=== PATIENT | female | born 1945 | race Hispanic/Latino ===

== ENCOUNTER 2021-03-28 10:40 | Inpatient (IN) | payer MEDICARE ==
[2021-03-28 11:39] LABS: Basophils % (Auto) 0.5 % (0.0-1.8); Eosinophils % (Auto) 0.5 % (0.0-4.3); Hematocrit 27.1 % (30.3-42.9); Lymphocytes # (Auto) 1.2 K/mm3 (1.2-5.4); Lymphocytes % (Auto) 14.5 % (13.4-35.0); Mean Corpuscular HGB Conc 33 % (30-34); Mean Corpuscular Volume 92 fl (79-97); Monocytes # (Auto) 0.6 K/mm3 (0.0-0.8); Monocytes % (Auto) 7.8 % (0.0-7.3); Platelet Count 248 K/mm3 (140-440); Red Blood Count 2.95 M/mm3 (3.65-5.03); Red Cell Distribution Width 14.2 % (13.2-15.2)
--- NOTE | 2021-03-28 11:45 | Emergency Department Report ---
ED GI Bleed HPI - General Chief complaint: Dyspnea/Respdistress Stated complaint: RASHEED Time Seen by Provider: 03/28/21 10:45 Source: patient Mode of arrival: Wheelchair Limitations: No Limitations - History of Present Illness Initial comments: 75-year-old female with a past medical history hypertension, Atrial flutter status post cardiac ablation, hypothyroidism, and elevated cholesterol presents to the hospital complaining of rectal bleeding for the 2 days. March 26 patient received an outpatient colonoscopy at [facility]. Apparently she had a polypectomy and felt fine up into the evening. evening patient developed rectal bleeding with bowel movements and presented to [facility] ED she received ED work-up including CT angiogram chest that was subsequently discharged. Since discharge home patient has continued to have episodes of gross blood per rectum with urges to move her bowels. She denies any pain. She had an episode of dyspnea exertion with palpitations and lightheadedness which prompted her to come back to the ER for evaluation. - Related Data Previous Rx's Medication Instructions Recorded Last Taken Type cephALEXin [Keflex] 500 mg PO Q8HR #28 cap 09/13/19 Unknown Rx Allergies Allergy/AdvReac Type Severity Reaction Status Date / Time codeine Allergy Unknown Verified 09/13/19 11:05 Sulfa (Sulfonamide Allergy Unknown Verified 09/13/19 11:05 Antibiotics) ED Review of Systems ROS: Stated complaint: RASHEED Other details as noted in HPI Comment: All other systems reviewed and negative ED Past Medical Hx - Past Medical History Hx Hypertension: Yes Additional medical history: Atrial flutter status post cardiac ablation,hypothyroidism, increased cholesterol - Surgical History Additional Surgical History: Cardiac ablation, bladder tack, vocal cord nodule removal, hysterectomy - Social History Smoking Status: Never Smoker Substance Use Type: Alcohol - Medications Home Medications: Home Medications Medication Instructions Recorded Confirmed Last Taken Type cephALEXin [Keflex] 500 mg PO Q8HR #28 cap 09/13/19 Unknown Rx ED Physical Exam - General Limitations: No Limitations - Other Other exam information: General: No acute distress Head: Atraumatic Eyes: normal appearance ENT: Moist mucous membranes Neck: Normal appearance, no midline tenderness Chest: Clear to auscultation bilaterally CV: Regular rate and rhythm Abdomen: Soft, normal bowel sounds, nontender, nondistended, no rebound or guarding Rectal: Gross maroon-colored blood on examination without stool, guaiac positive Back: Normal inspection Extremity: Normal inspection, full range of motion Neuro: Alert O x 3, no facial asymmetry, speech clear, no gross motor sensory deficit Psych: Appropriate behavior Skin: No rash ED Course Vital Signs 03/28/21 03/28/21 03/28/21 10:50 11:00 11:06 Pulse Rate Respiratory 25 H Rate Blood Pressure 155/65 O2 Sat by Pulse 98 96 95 Oximetry 03/28/21 03/28/21 03/28/21 11:16 11:31 11:45 Pulse Rate 77 71 Respiratory 11 L 11 L Rate Blood Pressure 163/59 167/50 89/24 O2 Sat by Pulse 96 98 98 Oximetry 03/28/21 03/28/21 03/28/21 12:01 12:15 12:31 Pulse Rate 74 71 75 Respiratory 13 11 L 15 Rate Blood Pressure 120/38 127/51 128/54 O2 Sat by Pulse 99 98 98 Oximetry 03/28/21 03/28/21 03/28/21 12:45 13:01 13:15 Pulse Rate 76 71 81 Respiratory 10 L 14 15 Rate Blood Pressure 144/58 125/51 114/47 O2 Sat by Pulse 97 99 98 Oximetry - Consultations Consultation #1: 03/28/21 12:29 DR Wilburn Plan to prep this evening for colonoscopy tomorrow. Pt's hgb at [facility] on March 26 was 11.1 as per his medical record review ED Medical Decision Making - Lab Data Result diagrams: 03/28/21 10:58 03/28/21 10:58 Lab Results 03/28/21 03/28/21 03/28/21 Range/Units 10:58 10:58 10:58 WBC 8.3 (4.5-11.0) K/mm3 RBC 2.95 L (3.65-5.03) M/mm3 Hgb 9.0 L (10.1-14.3) gm/dl Hct 27.1 L (30.3-42.9) % MCV 92 (79-97) fl MCH 31 (28-32) pg MCHC 33 (30-34) % RDW 14.2 (13.2-15.2) % Plt Count 248 (140-440) K/mm3 Lymph % (Auto) 14.5 (13.4-35.0) % [place] % (Auto) 7.8 H (0.0-7.3) % Eos % (Auto) 0.5 (0.0-4.3) % Baso % (Auto) 0.5 (0.0-1.8) % Lymph # (Auto) 1.2 (1.2-5.4) K/mm3 [place] # (Auto) 0.6 (0.0-0.8) K/mm3 Eos # (Auto) 0.0 (0.0-0.4) K/mm3 Baso # (Auto) 0.0 (0.0-0.1) K/mm3 Seg Neutrophils % 76.7 H (40.0-70.0) % Seg Neutrophils # 6.3 (1.8-7.7) K/mm3 PT 13.6 (12.2-14.9) Sec. INR 0.94 (0.87-1.13) APTT 28.6 (24.2-36.6) Sec. Sodium 137 (137-145) mmol/L Potassium 3.4 L (3.6-5.0) mmol/L Chloride 101.4 (98-107) mmol/L Carbon Dioxide 17 L (22-30) mmol/L Anion Gap 22 mmol/L BUN 13 (7-17) mg/dL Creatinine 0.8 (0.6-1.2) mg/dL Estimated GFR > 60 ml/min BUN/Creatinine Ratio 16 % Glucose 96 (65-100) mg/dL Calcium 8.4 (8.4-10.2) mg/dL Total Bilirubin 0.20 (0.1-1.2) mg/dL AST 12 (5-40) units/L ALT 10 (7-56) units/L Alkaline Phosphatase 60 (35-129) units/L Total Protein 5.8 L (6.3-8.2) g/dL Albumin 3.7 L (3.9-5) g/dL Albumin/Globulin Ratio 1.8 % Blood Type Antibody Screen 03/28/21 Range/Units 10:58 WBC (4.5-11.0) K/mm3 RBC (3.65-5.03) M/mm3 Hgb (10.1-14.3) gm/dl Hct (30.3-42.9) % MCV (79-97) fl MCH (28-32) pg MCHC (30-34) % RDW (13.2-15.2) % Plt Count (140-440) K/mm3 Lymph % (Auto) (13.4-35.0) % [place] % (Auto) (0.0-7.3) % Eos % (Auto) (0.0-4.3) % Baso % (Auto) (0.0-1.8) % Lymph # (Auto) (1.2-5.4) K/mm3 [place] # (Auto) (0.0-0.8) K/mm3 Eos # (Auto) (0.0-0.4) K/mm3 Baso # (Auto) (0.0-0.1) K/mm3 Seg Neutrophils % (40.0-70.0) % Seg Neutrophils # (1.8-7.7) K/mm3 PT (12.2-14.9) Sec. INR (0.87-1.13) APTT (24.2-36.6) Sec. Sodium (137-145) mmol/L Potassium (3.6-5.0) mmol/L Chloride (98-107) mmol/L Carbon Dioxide (22-30) mmol/L Anion Gap mmol/L BUN (7-17) mg/dL Creatinine (0.6-1.2) mg/dL Estimated GFR ml/min BUN/Creatinine Ratio % Glucose (65-100) mg/dL Calcium (8.4-10.2) mg/dL Total Bilirubin (0.1-1.2) mg/dL AST (5-40) units/L ALT (7-56) units/L Alkaline Phosphatase (35-129) units/L Total Protein (6.3-8.2) g/dL Albumin (3.9-5) g/dL Albumin/Globulin Ratio % Blood Type O NEGATIVE Antibody Screen Negative - EKG Data -: EKG Interpreted by Ia EKG shows normal: sinus rhythm, intervals (Normal QTC 435), QRS complexes (Number QRS duration 96), ST-T waves (No ST elevation WA) Rate: normal (89) - Radiology Data Radiology results: report reviewed XR chest 1V ap INDICATION / CLINICAL INFORMATION: sob COMPARISON: None available. FINDINGS: SUPPORT DEVICES: None. HEART / MEDIASTINUM: No significant abnormality. LUNGS / PLEURA: Calcification seen in the right lung base. Costophrenic sulci are sharp. No pneumothorax. ADDITIONAL FINDINGS: No significant additional findings. IMPRESSION: 1. No acute findings identified - Medical Decision Making 75-year-old female presents to the hospital as rectal bleeding status post colonoscopy with symptoms of anemia. Hemoglobin 9.0 therefore blood transfusion not needed at this time however, this is a significant drop from 11.1 on March 26. Case discussed with GI who will recommend bowel prep for colonoscopy in a.m. Critical Care Time: No Critical care attestation.: If time is entered above; I have spent that time in minutes in the direct care of this critically ill patient, excluding procedure time. ED Disposition Clinical Impression: Rectal bleeding, Anemia Disposition: ADMITTED INPATIENT Is pt being admited?: Yes Condition: Stable Time of Disposition: 12:37
[2021-03-28 11:49] LABS: INR 0.94 (0.87-1.13)
[2021-03-28 11:50] LABS: Partial Thromboplastin Time 28.6 Sec. (24.2-36.6)
--- NOTE | 2021-03-28 11:50 | XRay Report ---
XR chest 1V ap INDICATION / CLINICAL INFORMATION: sob COMPARISON: None available. FINDINGS: SUPPORT DEVICES: None. HEART / MEDIASTINUM: No significant abnormality. LUNGS / PLEURA: Calcification seen in the right lung base. Costophrenic sulci are sharp. No pneumotho rax. ADDITIONAL FINDINGS: No significant additional findings. IMPRESSION: 1. No acute findings identified Signer Name: Kvng Rivas MD Signed: 03/28/2021 11:45 AM Workstation Name: [id number]
[2021-03-28 11:52] LABS: Alanine Aminotransferase 10 units/L (7-56); Albumin 3.7 g/dL (3.9-5); BUN/Creatinine Ratio 16; Blood Urea Nitrogen 13 mg/dL (7-17); Calcium 8.4 mg/dL (8.4-10.2); Hemolysis Index 1
--- NOTE | 2021-03-28 13:50 | Gastroenterology Consultation ---
History of Present Illness - Reason for Consult Consult date: 03/28/21 GI bleed Requesting physician: FAITH RODRIGUEZ - History of Present Illness The patient is a 75 yo wf who presents with hematochezia for 2 days. Pt had colonoscopy with [facility] in [place] 2 mornings ago. report not available, but pt reports having 2 polyps removed, her friend at beside believes there were ~1 cm in size and in the right colon. The same night, she developed multiple episodes of hematochezia with clots, went to [facility] (records reviewed) with hgb 11 and CTA without active bleeding. she was discharged home from ER but had persistent bleeding episodes and felt lightheaded and presented to this ER (requested to come here, also of note, she is the mayor of [place] she denies abdominal pain. on baby aspirin but has not taken in over 1 week. last episode of bleeding was a couple hours ago. hgb 9 on this admission. HD stable. ? colonic avm as well per clinic note seen in epic. Past History Past Medical History: other (aflutter with prior ablation) Past Surgical History: hysterectomy Social history: no significant social history Family history: no significant family history Medications and Allergies Allergies Allergy/AdvReac Type Severity Reaction Status Date / Time codeine Allergy Unknown Verified 09/13/19 11:05 Sulfa (Sulfonamide Allergy Unknown Verified 09/13/19 11:05 Antibiotics) Home Medications Medication Instructions Recorded Confirmed Last Taken Type cephALEXin [Keflex] 500 mg PO Q8HR #28 cap 09/13/19 Unknown Rx Active Meds: Active Medications Acetaminophen (Acetaminophen 325 Mg Tab) 650 mg PO Q4H PRN PRN Reason: Pain MILD(1-3)/Fever >100.5/FOLEY Ondansetron HCl (Ondansetron 4 Mg/2 Ml Inj) 4 mg IV Q8H PRN PRN Reason: Nausea And Vomiting Oxycodone/Acetaminophen (Oxycodone /Acetaminophen 5-325mg Tab) 1 tab PO Q6H PRN PRN Reason: Pain, Moderate (4-6) Sodium Chloride (Sodium Chloride 0.9% 10 Ml Flush Syringe) 10 ml IV BID FUENTES Sodium Chloride (Sodium Chloride 0.9% 10 Ml Flush Syringe) 10 ml IV PRN PRN PRN Reason: LINE FLUSH Reviewed/updated patient's home and current medications. Review of Systems - Review of Systems All systems: negative (dyspnea (improved), rest per HPI) Exam - Constitutional Vital Signs: Temp Pulse Resp BP Pulse Ox 81 15 114/47 98 03/28/21 13:15 03/28/21 13:15 03/28/21 13:15 03/28/21 13:15 General appearance: no acute distress - EENT Eyes: PERRL, EOM intact - Respiratory Respiratory effort: normal Respiratory: bilateral: CTA - Cardiovascular Rhythm: regular Heart Sounds: Present: S1 & S2 - Gastrointestinal General gastrointestinal: Present: soft, non-tender, non-distended - Neurologic Neurological: alert and oriented x3 - Psychiatric Psychiatric: appropriate mood/affect - Labs CBC & Chem 7: 03/28/21 10:58 03/28/21 10:58 Lab Results: Laboratory Results - last 24 hr 03/28/21 03/28/21 03/28/21 10:58 10:58 10:58 WBC 8.3 RBC 2.95 L Hgb 9.0 L Hct 27.1 L MCV 92 MCH 31 MCHC 33 RDW 14.2 Plt Count 248 Lymph % (Auto) 14.5 [place] % (Auto) 7.8 H Eos % (Auto) 0.5 Baso % (Auto) 0.5 Lymph # (Auto) 1.2 [place] # (Auto) 0.6 Eos # (Auto) 0.0 Baso # (Auto) 0.0 Seg Neutrophils % 76.7 H Seg Neutrophils # 6.3 PT 13.6 INR 0.94 APTT 28.6 Sodium 137 Potassium 3.4 L Chloride 101.4 Carbon Dioxide 17 L Anion Gap 22 BUN 13 Creatinine 0.8 Estimated GFR > 60 BUN/Creatinine Ratio 16 Glucose 96 Calcium 8.4 Total Bilirubin 0.20 AST 12 ALT 10 Alkaline Phosphatase 60 Total Protein 5.8 L Albumin 3.7 L Albumin/Globulin Ratio 1.8 Blood Type Antibody Screen 03/28/21 10:58 WBC RBC Hgb Hct MCV MCH MCHC RDW Plt Count Lymph % (Auto) [place] % (Auto) Eos % (Auto) Baso % (Auto) Lymph # (Auto) [place] # (Auto) Eos # (Auto) Baso # (Auto) Seg Neutrophils % Seg Neutrophils # PT INR APTT Sodium Potassium Chloride Carbon Dioxide Anion Gap BUN Creatinine Estimated GFR BUN/Creatinine Ratio Glucose Calcium Total Bilirubin AST ALT Alkaline Phosphatase Total Protein Albumin Albumin/Globulin Ratio Blood Type O NEGATIVE Antibody Screen Negative Assessment and Plan 1. Hematochezia with acute blood loss anemia - LGI bleed after recent colonoscopy with polypectomy suggesting post-polypectomy bleed. also h/o colonic avm per chart review but suspect post-polypectomy bleed given timing. HD stable, drop in Hgb compared to yesterday at [facility]. will plan for golytely p rep this evening and colonoscopy tomorrow morning. okay for clears today from gi stand point. if signs of brisk bleeding, obtain CTA of abdomen, but currently does not appear to be the case.
[2021-03-28] MEDS ORDERED: oxyCODONE /ACETAMINOPHEN 5-325MG TAB PO PRN ×2 (14:00→14:29)
[2021-03-28] MEDS ORDERED: ACETAMINOPHEN 325 MG TAB PO PRN ×2 (14:00→14:29)
[2021-03-28] MEDS ORDERED: ONDANSETRON 4 MG/2 ML INJ IV PRN ×2 (14:00→14:29)
[2021-03-28] MEDS ORDERED: HYDROmorphone 1 MG/1 ML INJ IV PRN (14:29)
[2021-03-28] MEDS ORDERED: ALBUTEROL 2.5 MG/3 ML NEBU IH PRN (14:29)
--- NOTE | 2021-03-28 14:31 | History and Physical Report ---
History of Present Illness Chief complaint: I have been bleeding a lot History of present illness: 75 YO Female with HTN, Obesity, Hypothyroidism, HLD, Atrial Flutter S/P Ablation therapy not taking anticoagulation presents ED for evaluation. Patient reports "I had a lot of blood on my bottom". Patient states that she has experienced multiple episodes of rectal bleeding over the past 2 days with persistent symptoms over the same timeframe. Patient transported to [facility] via private vehicle for further care and evaluation of the aforementioned symptoms. The patient was seen and evaluated in the emergency department. All lab and imaging studies reviewed. Patient found to have bright red blood per rectum also found to be Hemoccult positive in the emergency department. Patient found to have clinical findings consistent with GI bleed. Patient admitted to telemetry and initiated on GI bleed protocol. Patient denies fever, chills, chest pain, palpitation, productive cough, skin rash or recent contact, ingestion of food/water from new or different sources, or known exposure to COVID-19. No prior admission for review. No medication listed at time of admission for reconciliation. Advanced care planning conducted in ED. Past History Past Medical History: atrial fib, hypertension, hyperlipidemia, other (aflutter with prior ablation) Past Surgical History: hysterectomy, Other (Cardiac ablation, bladder tack, vocal cord nodule removal) Social history: , lives with family. denies: smoking, alcohol abuse Family history: hypertension Medications and Allergies Allergies Allergy/AdvReac Type Severity Reaction Status Date / Time codeine Allergy Unknown Verified 09/13/19 11:05 Sulfa (Sulfonamide Allergy Unknown Verified 09/13/19 11:05 Antibiotics) Home Medications Medication Instructions Recorded Confirmed Last Taken Type cephALEXin [Keflex] 500 mg PO Q8HR #28 cap 09/13/19 Unknown Rx Active Meds: Active Medications Acetaminophen (Acetaminophen 325 Mg Tab) 650 mg PO Q4H PRN PRN Reason: Pain MILD(1-3)/Fever >100.5/FOLEY Acetaminophen (Acetaminophen 325 Mg Tab) 650 mg PO Q4H PRN PRN Reason: Pain MILD(1-3)/Fever >100.5/FOLEY Albuterol (Albuterol 2.5 Mg/3 Ml Nebu) 2.5 mg IH Q4HRT PRN PRN Reason: Shortness Of Breath Hydromorphone HCl (Hydromorphone 1 Mg/1 Ml Inj) 0.5 mg IV Q8H PRN PRN Reason: Pain , Severe (7-10) Ondansetron HCl (Ondansetron 4 Mg/2 Ml Inj) 4 mg IV Q8H PRN PRN Reason: Nausea And Vomiting Ondansetron HCl (Ondansetron 4 Mg/2 Ml Inj) 4 mg IV Q8H PRN PRN Reason: Nausea And Vomiting Oxycodone/Acetaminophen (Oxycodone /Acetaminophen 5-325mg Tab) 1 tab PO Q6H PRN PRN Reason: Pain, Moderate (4-6) Oxycodone/Acetaminophen (Oxycodone /Acetaminophen 5-325mg Tab) 1 tab PO Q6H PRN PRN Reason: Pain, Moderate (4-6) Polyethylene Glycol/Electrolytes (Polyethylene Glycol/Elect Soln 4000 Ml) 4,000 ml PO ONCE ONE Stop: 03/28/21 15:01 Sodium Chloride (Sodium Chloride 0.9% 10 Ml Flush Syringe) 10 ml IV BID FUENTES Sodium Chloride (Sodium Chloride 0.9% 10 Ml Flush Syringe) 10 ml IV PRN PRN PRN Reason: LINE FLUSH Sodium Chloride (Sodium Chloride 0.9% 10 Ml Flush Syringe) 10 ml IV BID FUENTES Sodium Chloride (Sodium Chloride 0.9% 10 Ml Flush Syringe) 10 ml IV PRN PRN PRN Reason: LINE FLUSH Review of Systems Constitutional: no weight loss, no weight gain, no fever, no chills Ears, nose, mouth and throat: no ear pain, no tinnitis, no decreased hearing, no nasal congestion, no nasal discharge Breasts: no change in shape, no mass Cardiovascular: no chest pain, no orthopnea, no palpitations, no edema, no synco pe Respiratory: no cough, no excessive sputum, no hemoptysis, no shortness of breath Gastrointestinal: BRBPR, no abdominal pain, no nausea, no vomiting, no hematemesis Genitourinary Female: no pelvic pain, no flank pain, no dysuria, no urinary frequency, no urgency Rectal: bleeding, no pain, no incontinence Musculoskeletal: no neck stiffness, no shooting arm pain, no arm n umbness/tingling Integumentary: no rash, no pruritis, no wounds, no jaundice, no blisters Neurological: no head injury, no paralysis, no weakness, no parathesias, no seizures, no syncope, no tremors Psychiatric: no anxiety, no hypersomnia, no change in appetite, no suicidal ideation Endocrine: no cold intolerance, no polyphagia, no excessive thirst, no nocturia, no excessive sweating Hematologic/Lymphatic: no easy bruising, no easy bleeding, no lymphadenopathy, no lymphedema Allergic/Immunologic: no urticaria, no wheezing, no persistent infections Exam - Constitutional Vitals: Temp Pulse Resp BP Pulse Ox 81 15 114/47 98 03/28/21 13:15 03/28/21 13:15 03/28/21 13:15 03/28/21 13:15 General appearance: Present: mild distress, obese - EENT Eyes: Present: PERRL ENT: hearing intact, clear oral mucosa - Neck Neck: Present: supple, normal ROM - Respiratory Respiratory effort: normal Respiratory: bilateral: CTA - Cardiovascular Heart Sounds: Present: S1 & S2. Absent: rub, click - Extremities Extremities: pulses symmetrical, No edema Peripheral Pulses: within normal limits - Abdominal General gastrointestinal: Present: soft, non-tender, non-distended, normal bowel sounds Female genitourinary: Present: normal - Integumentary Integumentary: Present: clear, warm, dry - Musculoskeletal Musculoskeletal: gait normal, strength equal bilaterally - Psychiatric Psychiatric: appropriate mood/affect, intact judgment & insight - Neurologic Neurologic: CNII-XII intact, moves all extremities Results - Labs CBC & Chem 7: 03/28/21 10:58 03/28/21 10:58 Labs: Abnormal lab results 03/28/21 03/28/21 Range/Units 10:58 10:58 RBC 2.95 L (3.65-5.03) M/mm3 Hgb 9.0 L (10.1-14.3) gm/dl Hct 27.1 L (30.3-42.9) % [place] % (Auto) 7.8 H (0.0-7.3) % Seg Neutrophils % 76.7 H (40.0-70.0) % Potassium 3.4 L (3.6-5.0) mmol/L Carbon Dioxide 17 L (22-30) mmol/L Total Protein 5.8 L (6.3-8.2) g/dL Albumin 3.7 L (3.9-5) g/dL Assessment and Plan - Patient Problems (1) Gastrointestinal hemorrhage Current Visit: Yes Status: Acute Plan to address problem: GI bleed protocol: Admit to telemetry, IV PPI therapy, supportive care, bowel rest, serial abdominal exam, GI team consulted in ED. Patient pending endoscopy in a.m. (2) Blood loss anemia Current Visit: Yes Status: Acute Plan to address problem: Supportive care, serial CBC. Will consider blood transfusion if patient drops hemoglobin greater than 2 g within the next 24 hours. (3) Obesity Current Visit: Yes Status: Acute Qualifiers: Body mass index: BMI 39.0-39.9 Plan to address problem: Balanced diet, increase physical activity discharge, outpatient pulmonary follow-up for sleep study. (4) Hypertension Current Visit: Yes Status: Acute Qualifiers: Hypertension type: primary hypertension Qualified Code(s): I10 - Essential (primary) hypertension Plan to address problem: Monitor blood pressure every shift, continue medical management (5) Hypothyroidism Current Visit: Yes Status: Acute Qualifiers: Hypothyroidism type: unspecified Qualified Code(s): E03.9 - Hypothyroidism, unspecified Plan to address problem: Supportive care, thyroid panel, supportive care. (6) Atrial flutter Current Visit: Yes Status: Acute Plan to address problem: Patient status post ablation. Patient continues to have normal sinus rhythm at this time. (7) DVT prophylaxis Current Visit: Yes Status: Acute Plan to address problem: SCD to bilateral lower extremities while in bed. Hold anticoagulation for now due to active GI bleed. (8) Advance care planning Current Visit: Yes Status: Acute Plan to address problem: Disease education done, care plan discussed, diagnoses discussed, prognosis discussed, patient is full code. Patient acknowledges understanding and agreement with care plan, +30 minutes.
[2021-03-28] MEDS ORDERED: POLYETHYLENE GLYCOL/ELECT SOLN 4000 ML PO ONE (15:00)
[2021-03-28 19:52] LABS: Free T4 (Free Thyroxine) 1.4 ng/dL (0.76-1.46)
[2021-03-28] MEDS: PANTOPRAZOLE 40 MG INJ IV SCH (21:55)
[2021-03-28] MEDS ORDERED: D5W/0.45% NACL 1,000 ML IV SCH (22:00)
[2021-03-29 05:38] LABS: Basophils % (Auto) 0.3 % (0.0-1.8); Eosinophils # (Auto) 0.1 K/mm3 (0.0-0.4); Eosinophils % (Auto) 0.8 % (0.0-4.3); Hematocrit 24.4 % (30.3-42.9); Hemoglobin 7.9 gm/dl (10.1-14.3); Lymphocytes # (Auto) 1.3 K/mm3 (1.2-5.4); Lymphocytes % (Auto) 19.5 % (13.4-35.0); Mean Corpuscular HGB Conc 33 % (30-34); Mean Corpuscular Volume 94 fl (79-97); Monocytes # (Auto) 0.6 K/mm3 (0.0-0.8); Monocytes % (Auto) 8.7 % (0.0-7.3); Platelet Count 211 K/mm3 (140-440); Red Blood Count 2.61 M/mm3 (3.65-5.03); Red Cell Distribution Width 14.4 % (13.2-15.2)
[2021-03-29 05:55] LABS: Blood Urea Nitrogen 9 mg/dL (7-17); Calcium 7.9 mg/dL (8.4-10.2); Hemolysis Index 12
[2021-03-29 06:02] LABS: BUN/Creatinine Ratio 15
[2021-03-29] MEDS ORDERED: WATER FOR IRRIG STERILE 1,000 ML BOTTLE ONE (08:09)
[2021-03-29] MEDS ORDERED: EPINEPHrine 1 MG/10 ML SYRINGE ONE (08:09)
[2021-03-29] MEDS ORDERED: WATER FOR IRRIG STERILE 250 ML BOTTLE IR ONE (08:09)
[2021-03-29] MEDS ORDERED: SODIUM CHLORIDE 0.9% 1000 ML 1,000 ML ONE (08:09)
--- NOTE | 2021-03-29 08:28 | Anesthesia Consultation ---
Anesthesia Consult and Med Hx Date of service: 03/29/21 - Airway Anesthetic Teeth Evaluation: Good, Caps ROM Head & Neck: Adequate Mental/Hyoid Distance: Adequate Mallampati Class: Class III Intubation Access Assessment: Possibly Difficult - Pre-Operative Health Status ASA Pre-Surgery Classification: ASA3 Proposed Anesthetic Plan: MAC - Cardiovascular System Hx Hypertension: Yes Hx Coronary Artery Disease: No (high cholesterol) Hx Cardia Arrhythmia: Yes (a-fib/a-flutter, s/p ablation) - Central Nervous System Hx Psychiatric Problems: No - Gastrointestinal Hx Ulcer: No (rectal bleeding, following colonoscopy with polypectomy) - Endocrine Hx Hypothyroidism: Yes - Other Systems Hx Obesity: Yes (BMI 39.9)
--- NOTE | 2021-03-29 08:45 | Anesthesia Day of Surgery ---
Anesthesia Day of Surgery - Day of Surgery Patient Examined: Yes Patient H&P Reviewed: Yes Patient is NPO: Yes
[2021-03-29] MEDS ORDERED: propofoL 200 MG/20 ML VIAL IV ONE (08:47)
--- NOTE | 2021-03-29 09:09 | Operative Report ---
Operative Report Operative Report: Colonoscopy Procedure Note Date of procedure: 03/29/2021 Endoscopist: Kevin Wilburn Pre-op diagnosis/indication: GI bleed/hematochezia Post-op diagnosis: Post-polypectomy ulcer, right sided avm's, diverticulosis Medications: MAC Estimated blood loss: None Description of procedure: After consent was obtained, the patient was placed in the left lateral decubitus position. The olympus colonoscope was inserted into the rectum and advanced to the cecum without difficulty. The patient tolerated the procedure well. The views of the mucosa were good. The quality of prep was good. The patient's vital signs were monitored continuously throughout the procedure. Findings: There was an ulcer in the cecum with a heme spot which is likely the site of the recent polypectomy. There was no high risk bleeding stigmata seen at this time. There were ~3 avm's in the proximal colon. Two were medium sized and a larger one was in the cecum adjacent the the recent polypectomy site. There was no bleeding seen from these locations. There were a few diverticula in the left side of the colon. No blood was seen in the entire procedure. Impression: 1. Post polypectomy ulcer with heme spot - no high risk bleeding stigmata. Suspect this is the source of the recent bleeding. 2. Right side/cecal avm's without bleeding 3. Left sided diverticulosis Recommendations: -okay to resume diet -can resume aspirin in 7 days if no further bleeding signs -recommend monitoring patient today, and if no further bleeding and stable labs, can be discharged tomorrow from gi stand point.
--- NOTE | 2021-03-29 09:41 | Post Anesthesia Evaluation ---
- Post Anesthesia Evaluation Patient Participated: Yes Airway Patent: Yes Stable Respiratory Function: Yes Nausea/Vomiting: No Temp > 96.8F: Yes Pain Manageable: Yes Adequeate Hydration: Yes Anesthesia Complications: No
[2021-03-29] MEDS: PANTOPRAZOLE 40 MG INJ IV SCH ×2 (10:36→21:15)
[2021-03-29] MEDS ORDERED: NON-FORMULARY EACH (Levothyroxine Tablet) PO SCH (11:30)
[2021-03-29] MEDS ORDERED: FUROSEMIDE 20 MG/2 ML INJ IV ONE (12:00)
[2021-03-29] MEDS ORDERED: ACETAMINOPHEN 325 MG TAB PO ONE (12:00)
[2021-03-29] MEDS ORDERED: SODIUM CHLORIDE 0.9% 500 ML 500 ML IV ONE (12:00)
[2021-03-29] MEDS ORDERED: diphenhydrAMINE 50 MG/ML VIAL IV ONE (12:00)
[2021-03-29] MEDS ORDERED: LEVOTHYROXINE 88 MCG TAB PO SCH (12:01)
--- NOTE | 2021-03-29 14:33 | Electrocardiograph Report ---
[facility] Test Date: 2021-03-28 Test Time: 11:04:24 Pat Name: JULIO GLEZ Department: Room: A482 Gender: F C D Still Operator: [id number] : 1945 Requested By: FAITH RODRIGUEZ Order Number: [id number] Reading MD: Wang Mejía Measurements Intervals [place] Rate: 89 P: 78 [place]: 178 QRS: 73 QRSD: 96 T: 25 QT: 358 QTc: 435 Interpretive Statements Sinus rhythm Low voltage, precordial leads No previous ECG available for comparison Electronically Signed On 03-29-2021 14:33:06 EST by Wang Mejía
--- NOTE | 2021-03-29 16:16 | Progress Note ---
Assessment and Plan - Patient Problems (1) Gastrointestinal hemorrhage Current Visit: Yes Status: Acute Plan to address problem: GI bleed protocol: Admit to telemetry, IV PPI therapy, supportive care, bowel rest, serial abdominal exam, GI team consulted in ED. packed red blood cell transfusion today. Continue to monitor for recurrent bleeding. Discharge planning in a.m. if hemoglobin stable and no recurrent bleeding. (2) Blood loss anemia Current Visit: Yes Status: Acute Plan to address problem: Supportive care, serial CBC. Packed red blood cell transfusion, Tylenol and Benadryl prior to transfusion. Lasix 10 mg IV after transfusion of third unit of packed red blood cells. (3) Obesity Current Visit: Yes Status: Acute Qualifiers: Body mass index: BMI 39.0-39.9 Plan to address problem: Balanced diet, increase physical activity discharge, outpatient pulmonary follow-up for sleep study. (4) Hypertension Current Visit: Yes Status: Acute Qualifiers: Hypertension type: primary hypertension Qualified Code(s): I10 - Essential (primary) hypertension Plan to address problem: Monitor blood pressure every shift, continue medical management (5) Hypothyroidism Current Visit: Yes Status: Acute Qualifiers: Hypothyroidism type: unspecified Qualified Code(s): E03.9 - Hypothyroidism, unspecified Plan to address problem: Continue Synthroid therapy, supportive care (6) Atrial flutter Current Visit: Yes Status: Acute Plan to address problem: Patient status post ablation. Patient continues to have normal sinus rhythm at this time. (7) DVT prophylaxis Current Visit: Yes Status: Acute Plan to address problem: SCD to bilateral lower extremities while in bed. Hold anticoagulation for now due to active GI bleed. (8) Advance care planning Current Visit: Yes Status: Acute Plan to address problem: Disease education done, care plan discussed, diagnoses discussed, prognosis discussed, patient is full code. Patient acknowledges understanding and agreement with care plan, +30 minutes. History Interval history: 75 YO Female HD #2 with GI Bleed complicated by blood loss anemia with continued drop in hgb overnight by greater than 1 gram. Patient underwent colonoscopy today and was found to have bleeding from polyp excision site. 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 Patient reports continued weakness. No reported nursing events. Patient denies pain. Hospitalist Physical - Constitutional Vitals: Temp Pulse Resp BP Pulse Ox 98.1 F 73 18 140/49 98 03/29/21 15:35 03/29/21 15:35 03/29/21 15:35 03/29/21 15:13 03/29/21 16:00 General appearance: Present: mild distress, obese - EENT Eyes: Present: PERRL ENT: other (Conjunctival pallor) - Respiratory Respiratory effort: normal Respiratory: bilateral: CTA - Cardiovascular Rhythm: regular Heart Sounds: Present: S1 & S2 - Extremities Extremities: no ischemia Peripheral Pulses: within normal limits - Abdominal General gastrointestinal: soft, non-tender, non-distended - Psychiatric Psychiatric: appropriate mood/affect, intact judgment & insight, memory intact - Neurologic Neurologic: CNII-XII intact, moves all extremities, gait normal Results - Labs CBC & Chem 7: 03/29/21 05:23 03/29/21 05:23 Labs: Laboratory Last Values WBC 6.6 K/mm3 (4.5-11.0) 03/29/21 05:23 RBC 2.61 M/mm3 (3.65-5.03) L 03/29/21 05:23 Hgb 7.9 gm/dl (10.1-14.3) L 03/29/21 05:23 Hct 24.4 % (30.3-42.9) L 03/29/21 05:23 MCV 94 fl (79-97) 03/29/21 05:23 MCH 31 pg (28-32) 03/29/21 05:23 MCHC 33 % (30-34) 03/29/21 05:23 RDW 14.4 % (13.2-15.2) 03/29/21 05:23 Plt Count 211 K/mm3 (140-440) 03/29/21 05:23 Lymph % (Auto) 19.5 % (13.4-35.0) 03/29/21 05:23 [place] % (Auto) 8.7 % (0.0-7.3) H 03/29/21 05:23 Eos % (Auto) 0.8 % (0.0-4.3) 03/29/21 05:23 Baso % (Auto) 0.3 % (0.0-1.8) 03/29/21 05:23 Lymph # (Auto) 1.3 K/mm3 (1.2-5.4) 03/29/21 05:23 [place] # (Auto) 0.6 K/mm3 (0.0-0.8) 03/29/21 05:23 Eos # (Auto) 0.1 K/mm3 (0.0-0.4) 03/29/21 05:23 Baso # (Auto) 0.0 K/mm3 (0.0-0.1) 03/29/21 05:23 Seg Neutrophils % 70.7 % (40.0-70.0) H 03/29/21 05:23 Seg Neutrophils # 4.7 K/mm3 (1.8-7.7) 03/29/21 05:23 PT 13.6 Sec. (12.2-14.9) 03/28/21 10:58 INR 0.94 (0.87-1.13) 03/28/21 10:58 APTT 28.6 Sec. (24.2-36.6) 03/28/21 10:58 Sodium 138 mmol/L (137-145) 03/29/21 05:23 Potassium 4.1 mmol/L (3.6-5.0) D 03/29/21 05:23 Chloride 103.9 mmol/L (98-107) 03/29/21 05:23 Carbon Dioxide 22 mmol/L (22-30) 03/29/21 05:23 Anion Gap 16 mmol/L 03/29/21 05:23 BUN 9 mg/dL (7-17) 03/29/21 05:23 Creatinine 0.6 mg/dL (0.6-1.2) 03/29/21 05:23 Estimated GFR > 60 ml/min 03/29/21 05:23 BUN/Creatinine Ratio 15 % 03/29/21 05:23 Glucose 120 mg/dL (65-100) H 03/29/21 05:23 Calcium 7.9 mg/dL (8.4-10.2) L 03/29/21 05:23 Total Bilirubin 0.20 mg/dL (0.1-1.2) 03/28/21 10:58 AST 12 units/L (5-40) 03/28/21 10:58 ALT 10 units/L (7-56) 03/28/21 10:58 Alkaline Phosphatase 60 units/L (35-129) 03/28/21 10:58 Total Protein 5.8 g/dL (6.3-8.2) L 03/28/21 10:58 Albumin 3.7 g/dL (3.9-5) L 03/28/21 10:58 Albumin/Globulin Ratio 1.8 % 03/28/21 10:58 TSH 1.140 mlU/mL (0.270-4.200) 03/28/21 18:40 Free T4 1.40 ng/dL (0.76-1.46) 03/28/21 18:40 Blood Type O NEGATIVE 03/28/21 10:58 Antibody Screen Negative 03/28/21 10:58 Crossmatch See Detail 03/28/21 10:58 Microbiology: Microbiology 03/28/21 11:17 Stool Stool Occult Blood (MARIXA) - Final Rausch/IV: Voiding Method Toilet Active Medications - Current Medications Current Medications: Generic Name Dose Route Start Last Admin Trade Name Freq PRN Reason Stop Dose Admin Acetaminophen 650 mg 03/28/21 14:29 Acetaminophen 325 Mg Tab PO Q4H PRN Pain MILD(1-3)/Fever >100.5/FOLEY Albuterol 2.5 mg 03/28/21 14:29 Albuterol 2.5 Mg/3 Ml Nebu IH Q4HRT PRN Shortness Of Breath Diltiazem HCl 20 mg 03/29/21 22:00 Diltiazem 60 Mg Tab PO BID FUENTES Hydromorphone HCl 0.5 mg 03/28/21 14:29 Hydromorphone 1 Mg/1 Ml Inj IV Q8H PRN Pain , Severe (7-10) Dextrose/Sodium Chloride 1,000 mls @ 75 mls/hr 03/28/21 22:00 03/28/21 22:56 D5/0.45ns IV 75 mls/hr DIRECT FUENTES Administration Levothyroxine Sodium 88 mcg 03/29/21 12:01 03/29/21 14:06 Levothyroxine 88 Mcg Tab PO 88 mcg SuMoWeThSa FUENTES Administration Levothyroxine Sodium 75 mcg 03/31/21 06:00 Levothyroxine 75 Mcg Tab PO TuFr FUENTES Ondansetron HCl 4 mg 03/28/21 14:29 Ondansetron 4 Mg/2 Ml Inj IV Q8H PRN Nausea And Vomiting Oxycodone/Acetaminophen 1 tab 03/28/21 14:29 Oxycodone /Acetaminophen 5-325mg Tab PO Q6H PRN Pain, Moderate (4-6) Pantoprazole Sodium 40 mg 03/28/21 22:00 03/29/21 10:36 Pantoprazole 40 Mg Inj IV 40 mg BID FUENTES Administration Sodium Chloride 10 ml 03/28/21 22:00 03/29/21 10:36 Sodium Chloride 0.9% 10 Ml Flush Syringe IV 10 ml BID FUENTES Administration Sodium Chloride 10 ml 03/28/21 14:29 Sodium Chloride 0.9% 10 Ml Flush Syringe IV PRN PRN LINE FLUSH
[2021-03-29] MEDS: dilTIAZem 60 MG TAB PO SCH (21:15)
[2021-03-29] MEDS ORDERED: DILTIAZEM PO SCH (22:00)
[2021-03-29 22:08] LABS: Hematocrit 30.6 % (30.3-42.9); Hemoglobin 10.1 gm/dl (10.1-14.3)
[2021-03-30 06:35] LABS: Hematocrit 30.6 % (30.3-42.9); Hemoglobin 10.1 gm/dl (10.1-14.3)
[2021-03-30] MEDS ORDERED: PANTOPRAZOLE 40 MG TAB PO SCH (07:30)
[2021-03-30 08:27] VITALS: BP 138/51
--- NOTE | 2021-03-30 08:40 | Discharge Summary ---
Providers - Providers Date of Admission: 03/28/21 12:53 Attending physician: NEAL SHELTON MD 03/28/21 12:32 Consult to Physician [CONS] Urgent Comment: Consulting Provider: JHONATAN CANO Physician Instructions: Reason For Exam: rectal bleeding, hgb drop 03/30/21 07:58 Physical Therapy Evaluation and Treat [CONS] Urgent Comment: Reason For Exam: weakness Primary care physician: [employer] Hospitalization Condition: Stable Core Measure Documentation - Palliative Care Palliative Care/ Comfort Measures: Not Applicable Exam - Constitutional Vitals: Temp Pulse Resp BP Pulse Ox 98.5 F 68 18 138/51 96 03/30/21 07:54 03/30/21 07:54 03/30/21 07:54 03/30/21 07:54 03/30/21 07:54 Plan Care Plan Goals: Please follow-up with your primary care doctor within 1 week after discharge. You can restart taking aspirin 1 week after today as long as there is no more bleeding. Follow up with: PRIMARY MD BRIAN [Primary Care Provider] - 7 Days Prescriptions: Pantoprazole [Protonix TAB] 40 mg PO BIDAC 30 Days #60 tablet
--- NOTE | 2021-03-30 09:03 | Gastroenterology Progress Note ---
Assessment and Plan 1. Hematochezia/GI bleed - resolved, suspect post-polypectomy bleed. H/H improved. okay to be discharged from gi stand point. can resume aspirin in 1 week and follow-up with primary GI after discharge. will sign off, please call as needed or with questions. Subjective Date of service: 03/30/21 Principal diagnosis: hematochezia Interval history: No events overnight/no further bleeding episodes since colonoscopy. feels well and wishes to go home. Objective - Constitutional Vitals: Temp Pulse Resp BP Pulse Ox 98.5 F 68 18 138/51 97 03/30/21 07:54 03/30/21 07:54 03/30/21 07:54 03/30/21 07:54 03/30/21 08:51 General appearance: no acute distress - Respiratory Respiratory effort: normal Respiratory: bilateral: CTA - Cardiovascular Rhythm: regular Heart Sounds: Present: S1 & S2 - Gastrointestinal General gastrointestinal: Present: soft, non-tender - Labs CBC & Chem 7: 03/30/21 06:05 03/29/21 05:23 Labs: Laboratory Results - last 24 hr 03/28/21 03/29/21 03/30/21 10:58 21:47 06:05 Hgb 10.1 10.1 Hct 30.6 D 30.6 Blood Type O NEGATIVE Antibody Screen Negative Crossmatch See Detail
[2021-03-30] MEDS ORDERED: NON-FORMULARY EACH (Levothyroxine Tablet) PO SCH (10:00)
[2021-03-30] MEDS: dilTIAZem 60 MG TAB PO SCH (10:29)
[2021-03-31] MEDS ORDERED: LEVOTHYROXINE 75 MCG TAB PO SCH (06:00)
== END 2021-03-30 11:18 | disposition home or self-care (01) | DRG 378 ==
LOC: ED 10:40 → EEVIPCON 12:53 → 4A 12:53
PROVIDERS: ADMIT Internal Medicine; ATTEND Student in an Organized Health Care Education/Training Program
PROC: 0DJD8ZZ Inspection of Lower Intestinal Tract, Via Natural or Artificial Opening Endoscopic (ICD-10-PCS; principal; 2021-03-29)
PROC: 30233N1 Transfusion of Nonautologous Red Blood Cells into Peripheral Vein, Percutaneous Approach (ICD-10-PCS; 2021-03-29)
DX: K57.91 Diverticulosis of intestine, part unspecified, without perforation or abscess with bleeding (principal); D62 Acute posthemorrhagic anemia; I48.92 Unspecified atrial flutter; K27.4 Chronic or unspecified peptic ulcer, site unspecified, with hemorrhage; K62.5 Hemorrhage of anus and rectum; E78.5 Hyperlipidemia, unspecified; E03.9 Hypothyroidism, unspecified; K63.5 Polyp of colon; I10 Essential (primary) hypertension; Z90.710 Acquired absence of both cervix and uterus; Z82.49 Family history of ischemic heart disease and other diseases of the circulatory system; Z88.5 Allergy status to narcotic agent; Z88.2 Allergy status to sulfonamides; Z88.1 Allergy status to other antibiotic agents
CPT/HCPCS: 36415; 71045; 80048; 80053; 82271; 84439; 84443; 85014; 85018; 85025; 85610; 85730; 86850; 86900; 86901; 86920; 93005; 93010; 94760; G0378; J7070; J7120; Q0162; C9113; J0171; J1200; J1940; J2704; J7030; J7040; P9016

== ENCOUNTER 2021-05-28 09:07 | Outpatient (CLI) | payer MEDICARE ==
--- NOTE | 2021-05-28 13:14 | Ultrasound Report ---
LEFT DIGITAL DIAGNOSTIC MAMMOGRAM -- 05/28/2021 LEFT LIMITED BREAST ULTRASOUND INDICATION: Follow-up of left breast asymmetry seen on recent outside facility screening mammogram. TECHNIQUE: Digital left mammographic imaging was performed. Spot compression views were obtained. Li mited ultrasound was performed. COMPARISON: Recent outside facility screening mammogram. FINDINGS: Breast Density: There are scattered areas of fibroglandular density. MAMMOGRAPHIC FINDINGS: There is no evidence of dominant mass, suspicious calcifications or architectu ral distortion in the left breast. The previously seen upper left breast asymmetry nearly completely resolves on spot compression imaging. ULTRASOUND FINDINGS: Targeted ultrasound evaluation was performed of the area of interest. No mass, area of shadowing or other significant abnormality is seen to correlate with the asymmetry. IMPRESSION: No sonographic or mammographic evidence of malignancy. The previously described left breast asymmetry is compatible with summation of normal breast tissue. Follow up recommendation: Routine yearly BI-RADS Category 2: BENIGN. A "normal" or negative report should not discourage follow up or biopsy of a clinically significant f inding. A written summary of these findings will be mailed to the patient. The patient will be entered into a mammography reporting system which will generate a reminder letter for the patient's next appointmen t at the appropriate interval. According to the [employer], yearly mammograms are recommended starting at age 40 and continuing as long as a woman is in good health. Breast MRI is recommended for women with an bartolo roximately 20-25% or greater lifetime risk of breast cancer, including women with a strong family his tory of breast or ovarian cancer and women who have been treated for Hodgkin's disease. Signer Name: Andrea Oreilly MD Signed: 05/28/2021 1:09 PM Workstation Name: [id number]
== END 2021-05-28 09:08 | disposition home or self-care (01) ==
LOC: MAMMO 09:07
PROVIDERS: ATTEND Obstetrics & Gynecology
DX: R92.8 Other abnormal and inconclusive findings on diagnostic imaging of breast (principal); N64.89 Other specified disorders of breast